=== PATIENT | female | born 1965 | race Two or more races ===

== ENCOUNTER 2020-07-06 13:58 | Emergency (ER) | payer MEDICARE ==
[~2020-07-06] VITALS: Ht 165.1 cm; Wt 83.2 kg
[2020-07-06] MEDS ORDERED: FLUORESCEIN/BENOXINATE 5 ML DROPS OP ONE (15:00)
[2020-07-06] MEDS ORDERED: FLUORESCEIN OPHTHALMIC 1 MG STRIP ONE (17:34)
[2020-07-06] MEDS ORDERED: PROPARACAINE OPHTH 0.5%, 15ML ONE (17:34)
[2020-07-06 17:50] VITALS: BP 125/82
--- NOTE | 2020-07-06 17:51 | NUR ---
TASK RN: PT/SPOUSE given discharge instructions and they have confirmed that they understand the instructions. Patient ambulatory with steady gait. NAD, DENIES ADDITIONAL QUESTIONS OR NEEDS, NO PERSONAL BELONGINGS LEFT IN ROOM AFTER DC.
== END 2020-07-06 17:53 | disposition home or self-care (01) ==
LOC: ED 17:30
DX: H10.022 Other mucopurulent conjunctivitis, left eye (principal); F17.210 Nicotine dependence, cigarettes, uncomplicated
CPT/HCPCS: 99283; 99406